=== PATIENT | female | born 1935 | race Caucasian/White ===

== ENCOUNTER → 2016-09-18 | Outpatient (CLI) | payer MEDICARE ==
--- NOTE | 2016-09-22 08:38 | MM ---
Reason for exam: screening (asymptomatic). Last mammogram was performed 1 year ago. History: Patient is postmenopausal, has history of colon cancer at age 65, and is nulliparous. Physical Findings: A clinical breast exam by your physician is recommended on an annual basis and results should be correlated with mammographic findings. MG 3D Screening Mammo W/Cad Bilateral CC and MLO view(s) were taken. Prior study comparison: September 12, 2015, bilateral MG 3d screening mammo w/cad. The breast tissue is extremely dense which could obscure a lesion on mammography. No significant changes when compared with prior studies. ASSESSMENT: Benign, BI-RAD 2 RECOMMENDATION: Routine screening mammogram of both breasts in 1 year.
== END | disposition home or self-care (01) ==
LOC: RADMAMWWP 12:10
PROVIDERS: ATTEND Family Medicine
DX: Z12.31 Encounter for screening mammogram for malignant neoplasm of breast (principal)
CPT/HCPCS: 77063; G0202

== ENCOUNTER → 2017-10-08 | Outpatient (CLI) | payer MEDICARE ==
--- NOTE | 2017-10-11 08:39 | MM ---
Reason for exam: screening (asymptomatic). Last mammogram was performed 1 year and 1 month ago. History: Patient is postmenopausal, has history of colon cancer at age 65, and is nulliparous. Physical Findings: A clinical breast exam by your physician is recommended on an annual basis and results should be correlated with mammographic findings. MG 3D Screening Mammo W/Cad Bilateral CC and MLO view(s) were taken. Prior study comparison: September 18, 2016, bilateral MG 3d screening mammo w/cad. September 12, 2015, bilateral MG 3d screening mammo w/cad. The breast tissue is extremely dense which could obscure a lesion on mammography. There are typically benign round linear vascular calcifications in both breasts, greater in the right breast. There is no discrete abnormality. ASSESSMENT: Benign, BI-RAD 2 RECOMMENDATION: Routine screening mammogram of both breasts in 1 year.
== END | disposition home or self-care (01) ==
LOC: RADMAMWWP 07:42
PROVIDERS: ATTEND Family Medicine
DX: Z12.31 Encounter for screening mammogram for malignant neoplasm of breast (principal)
CPT/HCPCS: 77063; 77067

== ENCOUNTER → 2018-07-01 | Outpatient (CLI) | payer MEDICARE ==
--- NOTE | 2018-07-01 16:54 | CT ---
EXAMINATION TYPE: CT abdomen pelvis w con DATE OF EXAM: 07/01/2018 COMPARISON: None INDICATION: Fecal blood in stool and pain DLP: 535.1 mGycm, Automated exposure control for dose reduction was used. CONTRAST: 80 mL of Isovue 300. Study performed with Oral Contrast TECHNIQUE: Axial images were obtained from above the diaphragm to the pubic rami in the axial plane a t 5 mm thick sections. Reconstructed images are reviewed on the computer in the coronal plane. FINDINGS: Limited CT sections are obtained the lung bases. The lung bases are clear. CT ABDOMEN: Liver: Normal Spleen: Normal Pancreas: Atrophic Adrenal glands: The adrenal glands are normal. Gallbladder: Normal Kidneys: There appears be a solid mass on the inferior posterior lateral right kidney measuring 2.3 c m in diameter with central hypodensity. Additional workup is recommended. Neoplasm is not excluded, s eries 3 image 41. No hydronephrosis is present. No cysts are present. Delayed images were obtained through the kidneys. There may be some slight washout of the inferior right renal mass compared to t he cortex. Aorta: Vascular calcification is within the aorta. Inferior vena cava: Normal. CT PELVIS: Loops of bowel within the abdomen and pelvis are normal. There are loops of bowel which are incom pletely distended or lack oral contrast limiting their evaluation. Postsurgical changes are at the re ctosigmoid junction. No suspicious bowel abnormality is evident. Appendix: Not identified Urinary bladder: Normal. Genitourinary structures: There is a 7.8 cm x 9.0 x 13.0 cm fluid structure in the left adnexal regio n. Large cyst may be present. Uterus contains multiple calcifications which could be degenerated fibr oids. Right ovary is not identified. Osseous structures: No suspicious lytic or sclerotic lesions. Spondylolysis of L5 is evident. Degener ative disc changes are within the lower lumbar spine. Scoliosis is present. IMPRESSIONS: 1. 2.3 cm mass inferior lateral right kidney. Additional workup for neoplasm is recommended. 2. Large cyst left ovary measuring 8 x 9 x 13 cm. Neoplasm should be considered. 3. No suspicious abnormality to account for fecal blood.
== END | disposition home or self-care (01) ==
LOC: RADCTMAIN 08:20
PROVIDERS: ATTEND Family Medicine
DX: N28.89 Other specified disorders of kidney and ureter (principal); N83.202 Unspecified ovarian cyst, left side; R19.5 Other fecal abnormalities
CPT/HCPCS: 82565; 84520; 74177; 36415; Q9967

== ENCOUNTER → 2018-07-19 | Outpatient (CLI) | payer MEDICARE ==
--- NOTE | 2018-07-19 13:53 | US ---
EXAMINATION TYPE: US pelvic complete DATE OF EXAM: 07/19/2018 COMPARISON: CT 07/01/2018 CLINICAL HISTORY: 82-year-old female R19.09 INTRA ABD AND PELVIC SWELLING. TECHNIQUE: Transabdominal sonographic images of the pelvis were acquired. Transvaginal sonographic images were not obtained due to large midline-left cystic mass displacing normal anatomy. Date of LMP: Years ago FINDINGS: EXAM MEASUREMENTS: Uterus: Not visualized on this exam Endometrial Stripe: Not visualized on this exam Right Ovary: Not visualized on this exam Left Ovary: Not visualized on this exam with certainty 1. Uterus: Not visualized on this exam 2. Endometrium: Not visualized on this exam 3. Right Ovary: Not visualized on this exam 4. Left Ovary: Not visualized on this exam with certainty 5. Bilateral Adnexa: Midline- left adnexa a large cystic area is visualized measuring 13.9 x 8.3 x 1 0.3 cm 6. Posterior cul-de-sac: wnl as visualized Prop Worker notes: Uterus is unable to be visualized due to large cystic area displacing normal anato my. Cystic area left adnexa measuring 13.9 x 8.3 x 10.3 cm. No normal ovarian tissue visualized IMPRESSION: Neither the uterus or either ovary could be visualized. There is a large cystic mass filling the midl ine pelvis and left adnexa measuring up to 13.9 cm. This appears to be relatively simple in appearanc e. Cystic epithelial ovarian neoplasm (likely benign) is in the differential. Recommended surgical co nsultation and/or MRI.
== END | disposition home or self-care (01) ==
LOC: RADUSWWP 12:54
PROVIDERS: ATTEND Family Medicine
DX: N94.89 Other specified conditions associated with female genital organs and menstrual cycle (principal)
CPT/HCPCS: 76856

== ENCOUNTER → 2018-10-24 | Outpatient (CLI) | payer MEDICARE ==
--- NOTE | 2018-10-25 14:33 | MM ---
Reason for exam: screening (asymptomatic). Last mammogram was performed 1 year and 1 month ago. History: Patient is postmenopausal, has history of colon cancer at age 65, and is nulliparous. Physical Findings: A clinical breast exam by your physician is recommended on an annual basis and results should be correlated with mammographic findings. MG 3D Screening Mammo W/Cad Bilateral CC and MLO view(s) were taken. Prior study comparison: October 08, 2017, bilateral MG 3d screening mammo w/cad. September 18, 2016, bilateral MG 3d screening mammo w/cad. The breast tissue is heterogeneously dense. This may lower the sensitivity of mammography. There is an increasing group of calcifications measuring 2mm in the left central outer breast at posterior depth. Other typically benign bilateral calcifications. ASSESSMENT: Incomplete: need additional imaging evaluation, BI-RAD 0 RECOMMENDATION: Special view mammogram of the left breast. [facility] will attempt to contact patient to return for supplemental views.
== END | disposition home or self-care (01) ==
LOC: RADMAMWWP 13:10
PROVIDERS: ATTEND Family Medicine
DX: Z12.31 Encounter for screening mammogram for malignant neoplasm of breast (principal)
CPT/HCPCS: 77063; 77067

== ENCOUNTER → 2018-11-02 | Outpatient (CLI) | payer MEDICARE ==
--- NOTE | 2018-11-02 09:46 | MM ---
Reason for exam: additional evaluation requested from abnormal screening. Last mammogram was performed less than 1 month ago. History: Patient is postmenopausal, has history of colon cancer at age 65, and is nulliparous. Physical Findings: Nurse did not find any significant physical abnormalities on exam. MG 3D Work Up W/Cad LT CC with magnification, ML with magnification, and ML view(s) were taken of the left breast. Prior study comparison: October 24, 2018, bilateral MG 3d screening mammo w/cad. October 08, 2017, bilateral MG 3d screening mammo w/cad. The breast tissue is heterogeneously dense. This may lower the sensitivity of mammography. Probably benign calcifications in the left breast. These results were verbally communicated with the patient and result sheet given to the patient on 11/02/18. ASSESSMENT: Probably benign, BI-RAD 3 RECOMMENDATION: Follow-up diagnostic mammogram of the left breast in 6 months.
== END ==
LOC: RADMAMWWP 08:53
PROVIDERS: ATTEND Family Medicine
DX: R92.8 Other abnormal and inconclusive findings on diagnostic imaging of breast (principal)
CPT/HCPCS: 77065; G0279; 77061

== ENCOUNTER → 2019-01-11 | Outpatient (CLI) | payer MEDICARE ==
--- NOTE | 2019-01-11 18:08 | CT ---
EXAMINATION TYPE: CT abdomen wo/w con DATE OF EXAM: 01/11/2019 COMPARISON: 07/01/2018 INDICATION: Rt renal mass DLP: 466.6 mGycm, Automated exposure control for dose reduction was used. CONTRAST: 100 mL of Isovue 300. Study performed with Oral Contrast TECHNIQUE: Axial images were obtained from above the diaphragm to the pubic rami in the axial plane a t 5 mm thick sections. Reconstructed images are reviewed on the computer in the coronal plane. Pre and postcontrast imaging was performed. FINDINGS: Limited CT sections are obtained the lung bases. The lung bases are clear. CT ABDOMEN: Liver: Normal Spleen: Normal Pancreas: Normal Adrenal glands: The adrenal glands are normal. Gallbladder: Normal Kidneys: There is a 2.1 cm heterogeneously enhancing mass extending from the inferior lateral right k idney. This previously measured 2.2 cm. No interval growth is evident. Remaining portions of the kidneys appear unremarkable. No additional masses are evident. No enlarging masses are identified. No cysts or hydronephrosis are present. Aorta: Vascular calcification is within the aorta. Inferior vena cava: Normal. IMPRESSIONS: 1. Stable appearing mass inferior lateral right kidney
== END | disposition home or self-care (01) ==
LOC: RADCTMAIN 10:46
PROVIDERS: ATTEND Urology
DX: N28.89 Other specified disorders of kidney and ureter (principal); Z88.0 Allergy status to penicillin; Z88.1 Allergy status to other antibiotic agents; Z88.2 Allergy status to sulfonamides; Z88.8 Allergy status to other drugs, medicaments and biological substances; Z88.5 Allergy status to narcotic agent
CPT/HCPCS: 82565; 84520; 74170; 36415; Q9967

== ENCOUNTER → 2019-02-10 | Outpatient (CLI) | payer MEDICARE ==
--- NOTE | 2019-02-10 15:32 | BD ---
EXAMINATION TYPE: Axial Bone Density DATE OF EXAM: 02/10/2019 COMPARISON: 01/28/2016 CLINICAL HISTORY: Z 78.0 Height: 60.5 IN Weight: 119 LBS RISK FACTORS HISTORY OF: Active: YES Diet low in dairy products/other sources of calcium: YES Postmenopausal woman: AGE 51 MEDICATIONS: Thyroid Medications: YES Which medication: Synthroid How Lon + YEARS Additional Medications: VIT D, HIGH BLOOD PRESSURE MEDS, CHOLESTEROL, SYNTHROID, DIABETES MEDS, EXAM MEASUREMENTS: Bone mineral densitometry was performed using the Intelligent Fingerprinting System. Bone mineral density as measured about the Lumbar spine is: ----- L1-L4(G/cm2): 1.231 T Score Values are as follows: ----- L2: -0.4 ----- L3: 1.3 ----- L4: 1.7 ----- L1-L4: 0.4 Bone mineral density has: Increased 1.2% since study of: 01/28/2016 Bone mineral density about the R hip (g/cm2): 1.004 Bone mineral density about the L hip (g/cm2): 0.950 T Score values are as follows: -----R Neck: -0.2 -----L Neck: -0.6 -----R Total: 0.7 -----L Total: 0.0 Bone mineral density has: Decreased -5.6% since study of: 01/28/2016 IMPRESSION: Normal (Values between +1 and -1 indicate normal bone mass). Consider repeating this study in 5 year s or sooner if there is some new clinical indication. NOTE: T-SCORE=SD OF THE YOUNG ADULT MEAN.
== END | disposition home or self-care (01) ==
LOC: RADBDWWP 14:24
PROVIDERS: ATTEND Family Medicine
DX: Z78.0 Asymptomatic menopausal state (principal)
CPT/HCPCS: 77080

== ENCOUNTER → 2019-04-19 | Outpatient (CLI) | payer MEDICARE ==
--- NOTE | 2019-04-19 11:05 | CT ---
EXAMINATION TYPE: CT abdomen pelvis w con DATE OF EXAM: 04/19/2019 COMPARISON: Prior CT 01/11/2019 and 07/01/2018 HISTORY: Left ovarian cyst CT DLP: 415.90 mGycm Automated exposure control for dose reduction was used. TECHNIQUE: Helical acquisition of images from the lung bases through the pelvis have been completed. CONTRAST: Performed with Oral Contrast and with IV Contrast, patient injected with 100 ml mL of Isovue 300. FINDINGS: There are coronary artery calcifications present, heart size is borderline enlarged. There may be a small hiatal hernia. LUNG BASES: There are some interstitial changes at the lung bases, no pleural or pericardial effusion AORTA: Atheromatous changes are present, no aneurysm LIVER/GB: Patient is post cholecystectomy. No evident liver mass. PANCREAS: No significant abnormality is seen. SPLEEN: No significant abnormality is seen. ADRENALS: No significant abnormality is seen. KIDNEYS: Enhancing soft tissue mass at the level of the right kidney lower pole measures approximatel y 2.3 cm similar to prior exam. REPRODUCTIVE ORGANS: Large cystic mass within the pelvis is again noted and measures greater than 14 cm in AP dimension by 11 cm in transverse dimension by 10 cm in cephalad to caudal dimension and ther e is displacement of the uterus and urinary bladder, as a calcifications again noted within the uteru s BOWEL: No evident bowel obstruction. FREE AIR: No Free Air visible. ASCITES: None visible. PELVIC ADENOPATHY: None visualized. RETROPERITONEAL ADENOPATHY: No Retroperitoneal Adenopathy visible. URINARY BLADDER: No significant abnormality is seen. OSSEOUS STRUCTURES: No significant interval change is seen. Degenerative disc changes and facet arth ropathy noted at the lumbar spine, there is spondylolysis at L5 bilaterally with anterolisthesis L5-S 1 IMPRESSION: ENLARGING CYSTIC PELVIC MASS. SOFT TISSUE MASS RIGHT KIDNEY MAY REPRESENT RENAL CELL CARCINOMA. POSTO P CHANGES AND ADDITIONAL FINDINGS ABOVE.
== END | disposition home or self-care (01) ==
LOC: RADCTMAIN 07:33
PROVIDERS: ATTEND Obstetrics & Gynecology
DX: N28.89 Other specified disorders of kidney and ureter (principal); R19.09 Other intra-abdominal and pelvic swelling, mass and lump; D06.9 Carcinoma in situ of cervix, unspecified; Z98.890 Other specified postprocedural states
CPT/HCPCS: 82565; 84520; 74177; 36415; Q9967

== ENCOUNTER → 2019-05-16 | Outpatient (CLI) | payer MEDICARE ==
--- NOTE | 2019-05-16 11:18 | ECHOS ---
STRESS ECHOCARDIOGRAM DATE OF SERVICE: 05/16/2019 INDICATIONS: Chest pain. MEDICATIONS: BASELINE HEART RATE: 75 BASELINE BLOOD PRESSURE: 165/88 MAXIMUM HEART RATE: 142 MAXIMUM BLOOD PRESSURE: 207/105 85% MPHR: 115 100% MPHR: 135 METS: 3.8 MAXIMUM STAGE REACHED: I TOTAL EXERCISE TIME: 3 minutes 2 seconds CLINICAL INFORMATION: STRESS DATA: Pretesting physical examination showed a heart rate of 75 pressure is 165/88 mmHg. Baseline EKG showed sinus rhythm. The patient exercised on the treadmill according to Wicho protocol for a total of 3 minutes and 2 seconds and achieved 3.8 METs. Max heart rate was 142, which is about 104 of maximum predicted heart rate. Maximum blood pressure was 207/105 mmHg. Clinically the patient developed shortness of breath without any symptoms of chest pain or chest discomfort. The EKG showed about [address]-segment changes. ECHOCARDIOGRAM IMAGES: On echo images from parasternal long axis view, parasternal short axis view, apical 4 chamber and apical 2 chamber view were obtained as the baseline images, at peak heart rate as well as on recovery. The echocardiogram images did show good augmentation in the left ventricular systolic function. CONCLUSION: 1. Poor exercise tolerance. 2. Mild EKG changes in response to exercise. 3. Normal echocardiogram in response to exercise. MMODL / IJN: [id number] /
== END | disposition home or self-care (01) ==
LOC: RADNMMAIN 08:49
PROVIDERS: ATTEND Family Medicine
DX: R94.31 Abnormal electrocardiogram [ECG] [EKG] (principal)
CPT/HCPCS: 93351

== ENCOUNTER → 2019-05-22 | Outpatient (CLI) | payer MEDICARE ==
--- NOTE | 2019-05-22 14:51 | MM ---
Reason for exam: follow-up at short interval from prior study. Last mammogram was performed 7 months ago. History: Patient is postmenopausal, has history of colon cancer at age 65, and is nulliparous. Physical Findings: Nurse did not find any significant physical abnormalities on exam. MG 3D Diag Mammo W/Cad LT CC and MLO view(s) were taken of the left breast. Prior study comparison: November 02, 2018, left breast MG 3d work up w/cad LT. October 24, 2018, bilateral MG 3d screening mammo w/cad. The breast tissue is heterogeneously dense. This may lower the sensitivity of mammography. Benign appearing calcifications in the left breast. Left upper outer quadrant architectural distortion 8cm from nipple. These results were verbally communicated with the patient and result sheet given to the patient on 05/22/19. ASSESSMENT: Incomplete: need additional imaging evaluation, BI-RAD 0 RECOMMENDATION: Ultrasound of the left breast.
--- NOTE | 2019-05-22 14:53 | USB ---
Reason for exam: additional evaluation requested from abnormal screening. History: Patient is postmenopausal, has history of colon cancer at age 65, and is nulliparous. US Breast Limited LT Left limited breast ultrasound including focal area of concern, retroareolar and axilla demonstrates a 7 x 4 x 9mm probable cystic cluster at 1 o'clock, 6 month follow up recommended. These results were verbally communicated with the patient and result sheet given to the patient on 05/22/19. ASSESSMENT: Probably benign, BI-RAD 3 RECOMMENDATION: Follow-up diagnostic mammogram of both breasts in 6 months. Ultrasound of the left breast in 6 months.
== END | disposition home or self-care (01) ==
LOC: RADMAMWWP 13:05
PROVIDERS: ATTEND Family Medicine
DX: R92.8 Other abnormal and inconclusive findings on diagnostic imaging of breast (principal)
CPT/HCPCS: 77061; 77065

== ENCOUNTER → 2019-06-08 | Outpatient (CLI) | payer MEDICARE ==
--- NOTE | 2019-06-09 01:34 | MR ---
EXAMINATION TYPE: MR pelvis w con DATE OF EXAM: 06/08/2019 COMPARISON: HISTORY: mass ovary and kidney CONTRAST: Standard multiplanar, multisequence MRI departmental protocol utilizing 5.5 mL intravenous Gadavist g adolinium contrast. Multiplanar multiecho imaging of the pelvis was performed with intravenous contrast. There is a thin wall large cystic mass in the pelvis that measures 15 x 9 x 11 cm. Urinary bladder is effaced anteriorly. There is no free fluid in the pelvis. There is a first-degree L5-S1 spondylolist hesis. There is disc space narrowing at L4-5 L5-S1. There is a 5 x 2.8 cm area of mixed signal on the anterior right lateral aspect of the cystic mass consistent uterus with calcified fibroids. The juan jocelyn of exam is unremarkable. Uterus is displaced to the right side and therefore cystic mass probab ly arises from the left ovary. IMPRESSION: Large thin-walled cystic mass apparently arising from the left ovary not changed in size compared to CT scan of 04/19/2019. No free fluid. No pathologic enhancement.
--- NOTE | 2019-06-09 01:52 | MR ---
EXAMINATION TYPE: MR abd w DATE OF EXAM: 06/08/2019 COMPARISON: HISTORY: mass ovary and kidney CONTRAST: Standard multiplanar, multisequence MRI departmental protocol utilizing 5.5 mL intravenous Gadavist g adolinium contrast. Liver and spleen appear normal. Bile ducts are not dilated. There is no evidence of pleural effusion. Spleen is intact. There is no evidence of pancreatic mass. The pancreatic duct is not dilated. There is no adrenal mass. Kidneys have normal size. There is 1 cm cortical cyst lateral right kidney. On the lower pole lateral aspect of the right kidney there is 2.1 cm exophytic mass. The mass has mi xed signal and on the T1 images predominantly higher signal. The lesion does not appear to have any s ignificant enhancement with the contrast. There is no ascites. There is no evidence of retroperitoneal adenopathy. Kidneys show no hydronephros is. IMPRESSION: Nonenhancing complex mass is exophytic on the lower pole right kidney and not changed in size compare d to CT scan of 04/19/2019. Mass also not changed in size compared to 07/01/2018 CT scan. The mass has not changed in size in almost 1 year. I have low suspicion of a malignant tumor. 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
== END | disposition home or self-care (01) ==
LOC: RADMRIMAIN 14:19
PROVIDERS: ATTEND Family Medicine
DX: N83.202 Unspecified ovarian cyst, left side (principal); N28.89 Other specified disorders of kidney and ureter
CPT/HCPCS: 72196; 74182; A9585

== ENCOUNTER → 2019-07-18 | Outpatient (CLI) | payer MEDICARE ==
--- NOTE | 2019-07-18 15:01 | US ---
EXAMINATION TYPE: US kidneys/renal and bladder DATE OF EXAM: 07/18/2019 COMPARISON: NONE CLINICAL HISTORY: D41.01 Right renal Mass. EXAM MEASUREMENTS: Right Kidney: 9.9 x 4.2 x 5.3 cm Left Kidney: 9.1 x 5.2 x 4.3 cm Right Kidney: solid lower pole vascular mass measuring 2.3 x 2.0 x 2.1cm Left Kidney: wnl Bladder: somewhat displaced due to large cyst in pelvis measuring 15.2 x 7.8 x 11.8cm There is no evidence for hydronephrosis at this point in time. No nephrolithiasis is seen. The urin lisandro bladder is anechoic. Bilateral ureteral jets are seen. IMPRESSION: Solid mass lower pole right kidney is nonspecific however renal cell carcinoma is not excluded. Cysti c pelvic mass.
== END | disposition home or self-care (01) ==
LOC: RADUSWWP 14:00
PROVIDERS: ATTEND Urology
DX: D41.01 Neoplasm of uncertain behavior of right kidney (principal); R19.00 Intra-abdominal and pelvic swelling, mass and lump, unspecified site; Z88.0 Allergy status to penicillin; Z88.1 Allergy status to other antibiotic agents; Z88.2 Allergy status to sulfonamides; Z88.5 Allergy status to narcotic agent
CPT/HCPCS: 76770

== ENCOUNTER 2019-12-13 06:31 | Day surgery (SDC) | payer MEDICARE ==
[2019-12-11 13:48] VITALS: BMI 20.7
[~2019-12-13 06:31] MED LIST: LACTATED RINGERS 1,000 ML IV SCH; LIDOCAINE 1% (10MG/ML) FOR IV START INTRADERMA PRN
[2019-12-13] MEDS ORDERED: LACTATED RINGERS 1,000 ML IV ONE (07:11)
[2019-12-13] MEDS ORDERED: PROPOFOL 10 MG/ML 20 ML VIAL IV ONE (07:32)
--- NOTE | 2019-12-13 07:35 | P.GSHP ---
History of Present Illness H&P Date: 12/13/19 CHIEF COMPLAINT: Colon screen HISTORY OF PRESENT ILLNESS: The patient is a 84-year-old female who presents for colon screen. Lower endoscopy was offered for further evaluation and management. PAST MEDICAL HISTORY: Please see list. PAST SURGICAL HISTORY: Please see list. MEDICATIONS: Please see list. ALLERGIES: Please see list. SOCIAL HISTORY: No illicit drug use FAMILY HISTORY: No reports of Crohn disease or ulcerative colitis. REVIEW OF ORGAN SYSTEMS: CONSTITUTIONAL: No reports of fevers or chills. PHYSICAL EXAM: VITAL SIGNS: Stable GENERAL: Well-developed pleasant in no acute distress. HEENT: No scleral icterus. Extraocular movements grossly intact. Moist buccal mucosa. NECK: Supple without lymphadenopathy. CHEST: Unlabored respirations. Equal bilateral excursions. CARDIOVASCULAR: Regular rate and rhythm. Distal 2+ pulses. ABDOMEN: Soft, nontender, nondistended. MUSCULOSKELETAL: No clubbing, cyanosis, or edema. ASSESSMENT: 1. Colon screen. PLAN: 1. Recommend proceeding with a lower endoscopy Past Medical History Past Medical History: Cancer, Diabetes Mellitus, Hypertension, Thyroid Disorder Additional Past Medical History / Comment(s): colon cancer History of Any Multi-Drug Resistant Organisms: None Reported Past Surgical History: Appendectomy, Bowel Resection, Cholecystectomy Additional Past Surgical History / Comment(s): nodules removed from thyroid Past Anesthesia/Blood Transfusion Reactions: No Reported Reaction Smoking Status: Never smoker - Past Family History Mother Family Medical History: No Reported History Medications and Allergies Home Medications Medication Instructions Recorded Confirmed Type Ascorbic Acid [Vitamin C] 500 mg PO DAILY 08/23/18 12/11/19 History Aspirin [Adult Low Dose Aspirin EC] 81 mg PO HS 08/23/18 12/11/19 History Enalapril [Vasotec] 10 mg PO BID 08/23/18 12/11/19 History Fenofibrate Nanocrystallized 145 mg PO DAILY 08/23/18 12/11/19 History [Fenofibrate] Lactobacillus Acidophilus 1 each PO DAILY 08/23/18 12/11/19 History [Acidophilus] Levothyroxine Sodium [Synthroid] 50 mcg PO DAILY 08/23/18 12/11/19 History Lysine [l-Lysine] 500 mg PO DAILY 08/23/18 12/11/19 History Magnesium Oxide [Mag-Ox] 250 mg PO DAILY 08/23/18 12/11/19 History Ensign-3 Fatty Acids/Fish Oil 1 each PO DAILY 08/23/18 12/11/19 History [Ensign-3 Fish Oil 1,200 mg Sfgl] Pioglitazone [Actos] 15 mg PO DAILY 08/23/18 12/11/19 History Rutin 500 mg PO DAILY 08/23/18 12/11/19 History Saccharomyces Cerevisiae [Scott's 1,000 mg PO DAILY 08/23/18 12/11/19 History Yeast] Ubidecarenone [Co Q-10] 200 mg PO DAILY 08/23/18 12/11/19 History Vitamin E (Dl,Tocopheryl Acet) 400 unit PO DAILY 08/23/18 12/11/19 History [Vitamin E] Cholecalciferol [Vitamin D3 (25 10,000 unit PO DAILY 12/11/19 12/11/19 History Mcg = 1000 Iu)] Allergies Allergy/AdvReac Type Severity Reaction Status Date / Time adhesive tape Allergy nguyen skin Verified 12/11/19 13:38 clindamycin Allergy Rash/Hives Verified 12/11/19 13:38 fentanyl Allergy Unknown Verified 12/11/19 13:38 levofloxacin Allergy Rash/Hives Verified 12/11/19 13:38 Penicillins Allergy yeast Verified 12/11/19 13:38 infection Sulfa (Sulfonamide Allergy Unknown Verified 12/11/19 13:38 Antibiotics) Surgical - Exam Vital Signs Temp Pulse Resp BP Pulse Ox 97.5 F L 78 18 175/88 94 L 12/13/19 07:08 12/13/19 07:08 12/13/19 07:08 12/13/19 07:08 12/13/19 07:08
--- NOTE | 2019-12-13 08:03 | P.PCN ---
Date of Procedure: 12/13/19 Description of Procedure: PREOPERATIVE DIAGNOSIS: Personal history of colon cancer POSTOPERATIVE DIAGNOSIS: Personal history of colon polyps Tubular adenoma cecum Tubular adenoma ascending colon Internal hemorrhoids, grade 3 OPERATION: Colonoscopy to the ileocecal valve and appendiceal orifice, cecum Colonoscopy with multiple hot snare polypectomies Colonoscopy with cold forceps biopsies SURGEON: Sarika Almanzar MD. ANESTHESIA: MAC. INDICATIONS: The patient is an 84-year-old male who presents with personal history of colon cancer. Last colonoscopy 1 year ago multiple large polyps removed. Benefits and risks were described and informed consent was obtained. DESCRIPTION OF PROCEDURE: The patient had undergone Suprep. She had been brought into the operating room and laid in the left lateral decubitus position. After adequate intravenous sedation, the rectum was examined with 2% lidocaine jelly. External hemorrhoids were encountered. The rectal tone was within normal limits. No lesions were palpated in the rectal vault. An Olympus colonoscope was advanced until the cecum, ileocecal valve and appendiceal orifice were clearly viewed. The prep was excellent. No sigmoid diverticulosis was encountered. Multiple colonic polyps were found and s removed with snare or cold forceps. No evidence of focal colitis was found. Retroflexion of the scope demonstrated grade 3 internal hemorrhoids without active bleeding or inflammation. The colon was desufflated. The patient had tolerated the procedure well. Withdrawal time was over 6 minutes. FINDINGS: Aronchick preparation quality scale 1 (1-5) Internal hemorrhoids, grade 3 External hemorrhoids, grade 3 No arteriovenous malformations. No sigmoid diverticulosis Removal of 3 polyps: - Snare polypectomy ascending colon, 6 mm tubulovillous adenoma polyp. - Cold forceps biopsy at cecum, 3 mm and 4 mm polyp. No focal colitis. RECOMMENDATIONS: Repeat colonoscopy in 2 years, 2021 Plan - Discharge Summary Discharge Rx Participant: No New Discharge Prescriptions: Continue Saccharomyces Cerevisiae [Scott's Yeast] 1,000 mg PO DAILY Lysine [l-Lysine] 500 mg PO DAILY Redgranite-3 Fatty Acids/Fish Oil [Redgranite-3 Fish Oil 1,200 mg Sfgl] 1 each PO DAILY Magnesium Oxide [Mag-Ox] 250 mg PO DAILY Lactobacillus Acidophilus [Acidophilus] 1 each PO DAILY Vitamin E (Dl,Tocopheryl Acet) [Vitamin E] 400 unit PO DAILY Rutin 500 mg PO DAILY Ascorbic Acid [Vitamin C] 500 mg PO DAILY Levothyroxine Sodium [Synthroid] 50 mcg PO DAILY Aspirin [Adult Low Dose Aspirin EC] 81 mg PO HS Pioglitazone [Actos] 15 mg PO DAILY Fenofibrate Nanocrystallized [Fenofibrate] 145 mg PO DAILY Enalapril [Vasotec] 10 mg PO BID Ubidecarenone [Co Q-10] 200 mg PO DAILY Cholecalciferol [Vitamin D3 (25 Mcg = 1000 Iu)] 10,000 unit PO DAILY Discharge Medication List Ascorbic Acid [Vitamin C] 500 mg PO DAILY 08/23/18 [History] Aspirin [Adult Low Dose Aspirin EC] 81 mg PO HS 08/23/18 [History] Enalapril [Vasotec] 10 mg PO BID 08/23/18 [History] Fenofibrate Nanocrystallized [Fenofibrate] 145 mg PO DAILY 08/23/18 [History] Lactobacillus Acidophilus [Acidophilus] 1 each PO DAILY 08/23/18 [History] Levothyroxine Sodium [Synthroid] 50 mcg PO DAILY 08/23/18 [History] Lysine [l-Lysine] 500 mg PO DAILY 08/23/18 [History] Magnesium Oxide [Mag-Ox] 250 mg PO DAILY 08/23/18 [History] Redgranite-3 Fatty Acids/Fish Oil [Redgranite-3 Fish Oil 1,200 mg Sfgl] 1 each PO DAILY 08/23/18 [History] Pioglitazone [Actos] 15 mg PO DAILY 08/23/18 [History] Rutin 500 mg PO DAILY 08/23/18 [History] Saccharomyces Cerevisiae [Scott's Yeast] 1,000 mg PO DAILY 08/23/18 [History] Ubidecarenone [Co Q-10] 200 mg PO DAILY 08/23/18 [History] Vitamin E (Dl,Tocopheryl Acet) [Vitamin E] 400 unit PO DAILY 08/23/18 [History] Cholecalciferol [Vitamin D3 (25 Mcg = 1000 Iu)] 10,000 unit PO DAILY 12/11/19 [History] Follow up Appointment(s)/Referral(s): Sarika Almanzar MD [STAFF PHYSICIAN] - As Needed Patient Instructions/Handouts: Colorectal Polyps (DC) Activity/Diet/Wound Care/Special Instructions: Colonoscopy 2 years, 2021 Discharge Disposition: HOME SELF-CARE
[2019-12-14 15:35] LABS: Glucose,Whole Blood 108 mg/dL (75-99)
[2019-12-15 08:06] VITALS: BP 163/74; PULSE 80; RESP 16; TEMP 97.5
== END 2019-12-13 08:46 | disposition home or self-care (01) ==
LOC: ORWHC2ENDO 06:31
PROVIDERS: ATTEND Surgery Plastic and Reconstructive Surgery
DX: Z12.11 Encounter for screening for malignant neoplasm of colon (principal); D12.0 Benign neoplasm of cecum; K63.5 Polyp of colon; K64.2 Third degree hemorrhoids; K64.4 Residual hemorrhoidal skin tags; Z85.038 Personal history of other malignant neoplasm of large intestine; Z86.010 Personal history of colon polyps; E11.9 Type 2 diabetes mellitus without complications; I10 Essential (primary) hypertension; E07.9 Disorder of thyroid, unspecified; Z91.040 Latex allergy status; Z88.1 Allergy status to other antibiotic agents; Z88.5 Allergy status to narcotic agent; Z88.0 Allergy status to penicillin; Z88.2 Allergy status to sulfonamides; Z90.49 Acquired absence of other specified parts of digestive tract; Z98.890 Other specified postprocedural states; Z79.82 Long term (current) use of aspirin; Z79.899 Other long term (current) drug therapy; Z79.890 Hormone replacement therapy; Z79.84 Long term (current) use of oral hypoglycemic drugs; Z91.09 Other allergy status, other than to drugs and biological substances; Z91.89 Other specified personal risk factors, not elsewhere classified
CPT/HCPCS: 88305; 45380; 45385; J2704

== ENCOUNTER → 2019-12-20 | Outpatient (CLI) | payer MEDICARE ==
--- NOTE | 2019-12-20 13:50 | MM ---
Reason for exam: follow-up at short interval from prior study. Last mammogram was performed 7 months ago. History: Patient is postmenopausal, has history of colon cancer at age 65, and is nulliparous. Physical Findings: Nurse did not find any significant physical abnormalities on exam. MG 3D Diag Mammo W/Cad YARED Bilateral CC and MLO view(s) were taken. Prior study comparison: May 22, 2019, left breast MG 3d diag mammo w/cad LT. November 02, 2018, left breast MG 3d work up w/cad LT. The breast tissue is extremely dense which could obscure a lesion on mammography. Stable benign calcifications. There is chronic nodularity bilaterally. There is no dominant lesion. No significant new findings when compared with previous films. These results were verbally communicated with the patient and result sheet given to the patient on 12/20/19. ASSESSMENT: Benign, BI-RAD 2 RECOMMENDATION: Routine screening mammogram of both breasts in 1 year.
== END | disposition home or self-care (01) ==
LOC: RADMAMWWP 12:38
PROVIDERS: ATTEND Family Medicine
DX: R92.8 Other abnormal and inconclusive findings on diagnostic imaging of breast (principal)
CPT/HCPCS: 77066; G0279; 77062

== ENCOUNTER → 2020-07-12 | Outpatient (CLI) | payer MEDICARE ==
--- NOTE | 2020-07-12 10:20 | US ---
EXAMINATION TYPE: US kidneys/renal and bladder DATE OF EXAM: 07/12/2020 COMPARISON: CT dated the 04/19/19. CLINICAL HISTORY: N28.3 RENAL CYST. EXAM MEASUREMENTS: Right Kidney: 9.5 x 5.0 x 4.2 cm Left Kidney: 9.2 x 3.5 x 4.6 cm Right Kidney: anechoic tubular area in sinus, solid appearing mass inferior measuring 2.4 x 2.0 x 1. 9cm Left Kidney: no hydro or mass identified. Bladder: wnl Patient states pelvic cyst drained 1 year prior, again seen on today's study measuring 11.7 x 7.7 x 8 .6cm with some solid appearing area superior. There is no evidence for hydronephrosis at this point in time. No nephrolithiasis is seen. The urin lisandro bladder is anechoic. Bilateral ureteral jets are seen. IMPRESSION: Solid mass lower pole right kidney identified on prior CT dated the 04/19/19. Neoplasm is not exclude d. Consider repeat CT scan.
== END | disposition home or self-care (01) ==
LOC: RADUSWWP 09:20
PROVIDERS: ATTEND Urology
DX: D49.519 Neoplasm of unspecified behavior of unspecified kidney (principal); Z88.0 Allergy status to penicillin; Z88.1 Allergy status to other antibiotic agents; Z88.2 Allergy status to sulfonamides; Z88.5 Allergy status to narcotic agent
CPT/HCPCS: 76770

== ENCOUNTER → 2020-08-21 | Outpatient (CLI) | payer MEDICARE ==
--- NOTE | 2020-08-21 16:33 | CT ---
EXAMINATION TYPE: CT abdomen pelvis w con DATE OF EXAM: 08/21/2020 HISTORY: Recent small bowel obstructions. Bloating, gas and abdominal discomfort. CT DLP: 374.3mGycm Automated Exposure Control for Dose Reduction was Utilized. CONTRAST: CT scan of the abdomen and pelvis is performed with IV Contrast, patient injected with 100 mL of Isov ue M300. COMPARISON: CT abdomen and pelvis April 19, 2019. MRI abdomen June 08, 2019 FINDINGS: LUNG BASES: Mild cardiomegaly redemonstrated. Persistent coronary artery calcification and/or stent i n the RCA distribution. Dependent atelectasis. LIVER/GB: Cholecystectomy clips redemonstrated. PANCREAS: Moderate generalized atrophy again seen. SPLEEN: No significant abnormality is seen. ADRENALS: No significant abnormality is seen. KIDNEYS: Symmetric cortical medullary uptake and excretion without hydronephrosis seen bilaterally. S cattered subcentimeter hypodense lesions throughout right kidney stable or slightly larger still pres umed benign. Persistent exophytic heterogeneous enhancing ball-shaped solid lesion with some washout measuring 2.2 x 1.8 cm coronal image 62 correlating with lesion of concern on MRI. There is a new min imally exophytic 9 mm heterogeneous enhancing solid lesion with washout upper pole right kidney later ally coronal image 62. BOWEL: Suboptimal evaluation of oral contrast does not reach ileal loop level in the right abdomen. P rominent small and large bowel loops with air-fluid levels noted. Patient has little intra-abdominal fat making evaluation suboptimal. Small bowel feces sign in distal ileal loops consistent with delaye d passage of ingested material to colonic level. Surgical changes at level of inferior rectum redemon strated. UTERUS/ADNEXA: Small uterus consistent with patient's postmenopausal age projects to right of midline with scattered calcified fibroids redemonstrated. Persistent large thin-walled cyst or cystic mass l eft pelvis measuring nearly 12 x 10 cm image 67 unchanged from prior. Local mass effect is present. LYMPH NODES: No greater than 1cm abdominal or pelvic lymph nodes are appreciated. OSSEOUS STRUCTURES: Scoliosis in the mid to lower lumbar spine. Grade 1 anterolisthesis L5 on S1. Severe disc space narro wing L3-L4 through the L5-S1 levels with multilevel moderate to advanced facet arthropathy. OTHER: No significant additional abnormality is seen. IMPRESSION: 1. Persistent suspicious enhancing exophytic solid 2.2 cm mass laterally lower pole right kidney worr isome for renal cell carcinoma. Second partially exophytic near 1.0 cm lesion right kidney now presen t. This also concerning for second area of focal renal cell carcinoma. 2. Stable large thin-walled cyst or cystic mass in the left pelvis favoring ovarian neoplasm even if benign in etiology due to local mass effect may warrant further investigation with drainage and/or mccloud rgery. No significant change from prior. 3. Overall nonspecific bowel gas pattern. Cannot exclude persistent partial distal small bowel obstru ction. Cannot exclude underlying ileus.
== END ==
LOC: RADCTMAIN 13:48
PROVIDERS: ATTEND Surgery
DX: K56.609 Unspecified intestinal obstruction, unspecified as to partial versus complete obstruction (principal)
CPT/HCPCS: 82565; 84520; 74177; 36415; Q9967 ×2

== ENCOUNTER → 2020-12-27 | Outpatient (CLI) | payer MEDICARE ==
--- NOTE | 2021-01-02 10:54 | MM ---
Reason for exam: screening (asymptomatic). Last mammogram was performed 1 year ago. History: Patient is postmenopausal, has history of colon cancer at age 65, and is nulliparous. Physical Findings: A clinical breast exam by your physician is recommended on an annual basis and results should be correlated with mammographic findings. MG 3D Screening Mammo W/Cad Bilateral CC and MLO view(s) were taken. Prior study comparison: December 20, 2019, bilateral MG 3d diag mammo w/cad YARED. May 22, 2019, left breast MG 3d diag mammo w/cad LT. The breast tissue is extremely dense which could obscure a lesion on mammography. Stable calcifications bilaterally. No significant changes when compared with prior studies. ASSESSMENT: Benign, BI-RAD 2 RECOMMENDATION: Routine screening mammogram of both breasts in 1 year.
== END | disposition home or self-care (01) ==
LOC: RADMAMWWP 09:18
PROVIDERS: ATTEND Family Medicine
DX: Z12.31 Encounter for screening mammogram for malignant neoplasm of breast (principal); Z78.0 Asymptomatic menopausal state
CPT/HCPCS: 77063; 77067

== ENCOUNTER → 2021-02-20 | Outpatient (CLI) | payer MEDICARE ==
--- NOTE | 2021-02-20 13:41 | CT ---
EXAMINATION TYPE: CT abdomen pelvis wo/w con DATE OF EXAM: 02/20/2021 HISTORY: Rt renal mass CT DLP: 589mGycm Automated Exposure Control for Dose Reduction was Utilized. CONTRAST: CT scan of the abdomen and pelvis is performed with oral and without and with IV Contrast, patient in jected with 100 mL of Isovue 300. COMPARISON: Most recent CT August 21, 2020 and older studies FINDINGS: LUNG BASES: Mild cardiomegaly redemonstrated. Persistent right coronary artery stent. Patchy Dependen t atelectasis. LIVER/GB: Cholecystectomy clips redemonstrated. No new biliary dilatation. PANCREAS: Moderate generalized atrophy redemonstrated. SPLEEN: No significant abnormality is seen. ADRENALS: No significant abnormality is seen. KIDNEYS: Noncontrast images show no renal calculi bilaterally. Symmetric cortical medullary uptake an d excretion without hydronephrosis seen bilaterally on postcontrast images. Punctate hypodense lesion s throughout right kidney stable or less well seen still presumed benign. Persistent exophytic hetero geneous enhancing ball-shaped solid lesion with some washout measuring 2.2 x 1.8 cm axial image 38 se sagar 7 remains present and not significantly changed from prior studies. There is stable partially ex ophytic 9 mm heterogeneous enhancing solid lesion with washout upper pole right kidney laterally hilario nal image 56 series 14 current study is stable from most recent study. No concerning left renal mass. BOWEL: Suboptimal evaluation as the oral contrast does not reach colonic level and patient has little intra-abdominal fat. Prominent contrast-filled small bowel loops throughout majority of the abdomen gradually transitioned to less prominent distal small bowel loops in the right lower quadrant and pel vis surgical changes at level of inferior rectum redemonstrated. Moderate fecal focal prominence at t his level again seen. Proximal to this left the sigmoid colon show mild to moderate wall thickening w ith mucosal enhancement. UTERUS/ADNEXA: Small uterus consistent with patient's postmenopausal age projects to right of midline with scattered calcified fibroids redemonstrated. Persistent large thin-walled cyst or cystic mass l eft pelvis measures 13.7 x 11.1 cm axial image 64 increased in size from prior. Local mass effect is present including on the bladder and adjacent bowel loops. LYMPH NODES: No greater than 1cm abdominal or pelvic lymph nodes are appreciated. OSSEOUS STRUCTURES: Scoliosis in the mid to lower lumbar spine. Severe Grade 1 anterolisthesis L5 on S1. Severe disc spac e narrowing L3-L4 through the L5-S1 levels with multilevel moderate to advanced facet arthropathy red emonstrated. OTHER: Moderate calcified plaque of the aorta extends into branch vessels. IMPRESSION: 1. Stable suspicious enhancing exophytic solid 2.2 cm mass laterally lower pole right kidney worrisom e for renal cell carcinoma. Stable Second partially exophytic near 1.0 cm lesion upper pole level rig ht kidney worrisome for additional renal cell carcinoma. No new or enlarging suspicious renal masses. 2. Large thin-walled cyst or cystic mass in the left pelvis favoring ovarian neoplasm even if benign in etiology due to local mass effect may warrant further investigation with drainage and/or surgery. It is increased in size from most recent CT scan and it shows more prominent local mass effect. Follo w-up advised. 3. Overall nonspecific bowel gas pattern. Cannot exclude persistent partial distal small bowel obstr uction. Cannot exclude underlying ileus. Suspect new distal colitis right before surgical changes in the rectum. Correlate clinically.
== END | disposition home or self-care (01) ==
LOC: RADCTMAIN 10:42
PROVIDERS: ATTEND Urology
DX: N28.89 Other specified disorders of kidney and ureter (principal)
CPT/HCPCS: 82565; 84520; 74178; 36415; Q9967 ×2

== ENCOUNTER → 2021-09-24 | Outpatient (CLI) | payer MEDICARE ==
--- NOTE | 2021-09-24 12:10 | CT ---
EXAMINATION TYPE: CT abdomen pelvis wo/w con DATE OF EXAM: 09/24/2021 COMPARISON: CT dated 02/20/2021 HISTORY: intra abdominal and pelvic swelling mass CT DLP: 922 mGycm Automated exposure control for dose reduction was used. TECHNIQUE: Helical acquisition of images was performed from the lung bases through the pelvis. CONTRAST: Performed with Oral Contrast and with IV Contrast, patient injected with 100ML mL of Isovue 300. FINDINGS: LUNG BASES: Suspected cardiomegaly. LIVER/GB: Previous cholecystectomy. Stable dilated CBD and central intrahepatic biliary tree likely r elated to postcholecystectomy status. No definite hepatic focal lesion. PANCREAS: Atrophic. Slightly larger cystic lesion seen at the distal pancreatic body measuring 16mm c ompared to 13 mm previously with slightly more dilatation of the pancreatic duct distal to the lesion . Recommend surgical consultation if not already performed. SPLEEN: No significant abnormality is seen. ADRENALS: No significant abnormality is seen. KIDNEYS: Stable suspicious renal cell carcinoma of the lower pole of right kidney measuring up to 2.2 cm. The less complex cystic lesion at the upper pole of right kidney is slightly larger today measur ing 13 mm compared to 11 mm previously. This could represent another RCC. Other scattered smaller linus ateral renal hypodensities likely representing tiny renal cysts. FREE AIR: No free air is visualized. RETROPERITONEAL ADENOPATHY: None visualized REPRODUCTIVE ORGANS: Suspected multiple uterine calcifications, appreciated previously. The previousl y seen large left pelvic cyst has markedly decreased in size with apparent partially cystic lesion in the left adnexa with slightly thick wall measuring 2.9 x 3.8 cm. This is suboptimally assessed by th is CT scan. Further pelvic ultrasound or MRI assessment can be considered. No gross right adnexal mas s. URINARY BLADDER: No significant abnormality is seen. PELVIC ADENOPATHY: None visualized. OSSEOUS STRUCTURES: Diffuse osteopenia. Bilateral L5 pars break with grade 2 anterolisthesis of L5 o michael S1. Degenerative changes of the lower lumbar spine most evident at L5-S1 level. BOWEL: Unremarkable nondistended stomach. Small duodenal diverticulum. Another diverticulum is seen at the duodenojejunal junction. Diffuse dilatation of the small bowel loops measuring up to 6.2 cm wi th a gradual tapering of the caliber down to the ileocecal junction, associated with dependent densit ies within the dilated small bowel loops, nonspecific. This was also appreciated previously and unlik magda to represent acute mechanical small bowel obstruction. The underlying etiology could be functiona l representing element of chronic ileus. Scleroderma or malabsorption syndrome cannot be excluded. Re commend clinical correlation, GI consultation and further workup. Colonic anastomosis in the pelvis, grossly unremarkable. Severe fecal loading of the rectum and most of the colon consistent with consti pation. Slight wall thickening of the splenic flexure, please correlate with colonoscopy results. OTHER: Extensive arterial atherosclerotic calcifications. No sizable ascites. IMPRESSION: 1. Stable highly suspicious right lower pole renal lesion likely representing renal cell carcinoma wi th slightly larger complex cystic lesion at the upper pole of right kidney as described above. Recomm end urology consultation if not already performed. 2. Interval regression of the size of the previously seen left pelvic cystic lesion with residual sma ller cyst demonstrating thickened wall, likely left adnexal as described above. This can be further a ssessed by dedicated ultrasound/MRI of the left ovary. 3. Persistent marked diffuse dilatation of the small bowel loops as described above, likely chronic a nd appreciated previously. This could represent a form of ileus. Underlying chronic bowel disease lik e scleroderma or malabsorption syndrome cannot be excluded. Recommend clinical correlation, GI consul tation and further workup. 4. Slightly thickened colonic splenic flexure, recommend correlation with colonoscopy results. 5. Enlarging pancreatic tail cyst, for surgery consultation. Other incidental findings as described victor m nazario.
== END | disposition home or self-care (01) ==
LOC: RADCTMAIN 07:19
PROVIDERS: ATTEND Family Medicine
DX: K86.2 Cyst of pancreas (principal); K63.89 Other specified diseases of intestine; N94.89 Other specified conditions associated with female genital organs and menstrual cycle
CPT/HCPCS: 82565; 84520; 74178; 36415; Q9967

== ENCOUNTER → 2021-12-02 | Outpatient (CLI) | payer MEDICARE ==
--- NOTE | 2021-12-03 05:27 | XR ---
EXAMINATION TYPE: XR abdomen acute w cxr DATE OF EXAM: 12/02/2021 COMPARISON: CT 09/24/2021 HISTORY: 78-year-old female R1 4.0, abdominal distention and bloating FINDINGS: Heart mildly enlarged mild atherosclerotic arch calcifications. Some strandy atelectasis in the lower lungs. No colt consolidation or pleural effusion. No evidence for free intraperitoneal air. Air-fluid levels throughout the colon. Cholecystectomy clips. Gassy bowel loops are present throughou t extending distally to the rectum. Surgical clips on both sides of the pelvis. No significant stool burden seen. Some chronic appearing calcifications in the pelvis. IMPRESSION: 1. Mild cardiomegaly. There may be underlying COPD. No definite acute cardiopulmonary process. 2. No evidence for free air. 3. Air-filled bowel loops throughout the abdomen and pelvis. Consider generalized ileus. There our mccloud rgical clips in the pelvis. Given the degree of air distention of multiple bowel loops, correlate to exclude distal colonic obstruction.
== END | disposition home or self-care (01) ==
LOC: LABWHC1 14:31
PROVIDERS: ATTEND Family Medicine
DX: I51.7 Cardiomegaly (principal)
CPT/HCPCS: 36415; 74022; 93005

== ENCOUNTER → 2021-12-26 | Outpatient (CLI) | payer MEDICARE ==
--- NOTE | 2021-12-29 10:15 | MM ---
Reason for Exam: Screening (asymptomatic). Last screening mammogram was performed 12 month(s) ago. Patient History: Menarche at age 12. Patient has no children. Postmenopausal. Prior Study Comparison: 05/22/2019 Left Diagnostic Mammogram, [facility]. 12/20/2019 Bilateral Diagnostic Mammogram, [facility]. 12/27/2020 Bilateral Screening Mammogram, [facility]. Tissue Density: The breast tissue is extremely dense which could obscure a lesion on mammography. Findings: Analyzed By CAD. Redemonstrated benign bilateral vascular and secretory calcifications. No significant mass, suspicious microcalcifications, or other discrete abnormality is seen allowing for the patient's extremely dense tissues. Overall Assessment: Benign, BI-RAD 2 Management: Screening Mammogram of both breasts in 1 year. 1. Consideration can be given to supplementary screening breast ultrasound given the patient's extremely dense tissues. 2. Patient should continue monthly self breast exams. A clinical breast exam by your physician is recommended on an annual basis. 3. This exam should not preclude additional follow-up of suspicious palpable abnormalities. Electronically signed and approved by: Paola Venegas M.D. Radiologist
== END | disposition home or self-care (01) ==
LOC: RADMAMWWP 13:55
PROVIDERS: ATTEND Family Medicine
DX: Z12.31 Encounter for screening mammogram for malignant neoplasm of breast (principal); R92.1 Mammographic calcification found on diagnostic imaging of breast; Z78.0 Asymptomatic menopausal state
CPT/HCPCS: 77063; 77067

== ENCOUNTER → 2022-03-02 | Outpatient (CLI) | payer MEDICARE ==
--- NOTE | 2022-03-02 13:05 | US ---
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 F/U right re nal lesion TECHNIQUE: Multiple sonographic images of the kidneys and bladder are obtained. FINDINGS: EXAM MEASUREMENTS: Right Kidney: 10.7 x 5.7 x 4.8 cm Left Kidney: 9.3 x 4.9 x 4.6 cm Right Kidney: No evidence hydro, stable (compared to 07/12/2020) solid renal lesion lower pole= 2.4 x 1 .5 x 2.1 cm. Unable to appreciate cystic lesion upper pole as visualized on prior CT due to very thin patient. No hydronephrosis. Left Kidney: Visualized portions appeared wnl Bladder: Appeared wnl Bilateral Jets seen: Only right jet visualized Incidental finding left adnexal cystic mass, stable when compared to prior CT= 3.3 x 2.0 x 2.4 cm IMPRESSION: 1. Solid mass lower pole right kidney measuring 2.4 cm remains unchanged back to 07/12/2020. Ongoing mccloud rveillance recommended as an indolent RCC is not excluded. 2. No hydronephrosis on either side. 3. Incidental left adnexal cystic lesion measuring 3.3 cm, abnormal in a postmenopausal female. This was measured up to 15 cm back on the MRI of 06/08/2019. Despite it being smaller, ongoing surveillance recommended.
== END | disposition home or self-care (01) ==
LOC: RADUSWWP 07:53
PROVIDERS: ATTEND Urology
DX: D41.01 Neoplasm of uncertain behavior of right kidney (principal)
CPT/HCPCS: 76770

== ENCOUNTER → 2022-05-07 | Day surgery (SDC) | payer MEDICARE ==
[2022-05-06 09:58] VITALS: BMI 16.9
[~2022-05-07] MED LIST changes: +LACTATED RINGERS 1,000 ML IV ONE; +PROPOFOL 10 MG/ML 20 ML VIAL IV ONE
[2022-05-07 07:56] VITALS: TEMP 98
--- NOTE | 2022-05-07 08:00 | P.GSHP ---
History of Present Illness H&P Date: 05/07/22 CHIEF COMPLAINT: Colon screen HISTORY OF PRESENT ILLNESS: The patient is a 86-year-old female who presents for colon screen. Lower endoscopy was offered for further evaluation and management. PAST MEDICAL HISTORY: Please see list. PAST SURGICAL HISTORY: Please see list. MEDICATIONS: Please see list. ALLERGIES: Please see list. SOCIAL HISTORY: No illicit drug use FAMILY HISTORY: No reports of Crohn disease or ulcerative colitis. REVIEW OF ORGAN SYSTEMS: CONSTITUTIONAL: No reports of fevers or chills. PHYSICAL EXAM: VITAL SIGNS: Stable GENERAL: Well-developed pleasant in no acute distress. HEENT: No scleral icterus. Extraocular movements grossly intact. Moist buccal mucosa. NECK: Supple without lymphadenopathy. CHEST: Unlabored respirations. Equal bilateral excursions. CARDIOVASCULAR: Regular rate and rhythm. Distal 2+ pulses. ABDOMEN: Soft, nontender, nondistended. MUSCULOSKELETAL: No clubbing, cyanosis, or edema. ASSESSMENT: 1. Colon screen. PLAN: 1. Recommend proceeding with a lower endoscopy Past Medical History Past Medical History: Cancer, Diabetes Mellitus, Hyperlipidemia, Hypertension, Thyroid Disorder Additional Past Medical History / Comment(s): colon cancer. UNEXPLAINED WEIGHT LOSS History of Any Multi-Drug Resistant Organisms: None Reported Past Surgical History: Appendectomy, Bowel Resection, Cholecystectomy Additional Past Surgical History / Comment(s): nodules removed from thyroid. COLONOSCOPY. LYSIS OF ADHESIONS Past Anesthesia/Blood Transfusion Reactions: No Reported Reaction Smoking Status: Never smoker - Past Family History Mother Family Medical History: No Reported History Medications and Allergies Home Medications Medication Instructions Recorded Confirmed Type Ascorbic Acid [Vitamin C] 500 mg PO DAILY 08/23/18 05/06/22 History Aspirin [Adult Low Dose Aspirin EC] 81 mg PO HS 08/23/18 05/06/22 History Enalapril [Vasotec] 10 mg PO BID 08/23/18 05/07/22 History Fenofibrate Nanocrystallized 145 mg PO DAILY 08/23/18 05/07/22 History [Fenofibrate] Lactobacillus Acidophilus 1 each PO DAILY 08/23/18 05/06/22 History [Acidophilus] Lysine [l-Lysine] 500 mg PO DAILY 08/23/18 05/06/22 History Magnesium Oxide [Mag-Ox] 250 mg PO DAILY 08/23/18 05/06/22 History [place]-3 Fatty Acids/Fish Oil 1 each PO DAILY 08/23/18 05/06/22 History [[place]-3 Fish Oil 1,200 mg Sfgl] Rutin 500 mg PO DAILY 08/23/18 05/06/22 History Saccharomyces Cerevisiae [Scott's 1,000 mg PO DAILY 08/23/18 05/06/22 History Yeast] Ubidecarenone [Co Q-10] 200 mg PO DAILY 08/23/18 05/06/22 History Vitamin E (Dl,Tocopheryl Acet) 400 unit PO DAILY 08/23/18 05/06/22 History [Vitamin E (400 Iu = 180 mg)] Cholecalciferol [Vitamin D3 (25 10,000 unit PO DAILY 12/11/19 05/07/22 History Mcg = 1000 Iu)] Levothyroxine Sodium 100 mcg PO DAILY 05/06/22 05/07/22 History Allergies Allergy/AdvReac Type Severity Reaction Status Date / Time adhesive tape Allergy nguyen skin Verified 05/07/22 07:52 clindamycin Allergy Rash/Hives Verified 05/07/22 07:52 fentanyl Allergy Unknown Verified 05/07/22 07:52 levofloxacin Allergy Rash/Hives Verified 05/07/22 07:52 Penicillins AdvReac yeast Verified 05/07/22 07:52 infection Sulfa (Sulfonamide AdvReac YEAST Verified 05/07/22 07:52 Antibiotics) INFECTION Surgical - Exam Vital Signs Temp Pulse Resp BP Pulse Ox 98.0 F 74 16 203/93 98 05/07/22 07:54 05/07/22 07:54 05/07/22 07:54 05/07/22 07:54 05/07/22 07:54
[2022-05-07 08:12] LABS: Glucose,Whole Blood 75 mg/dL (70-110)
--- NOTE | 2022-05-07 09:37 | P.PCN ---
Date of Procedure: 05/07/22 Description of Procedure: PREOPERATIVE DIAGNOSIS: Personal history of colon cancer Personal history of colon polyps after right hemicolectomy POSTOPERATIVE DIAGNOSIS: Tubular adenoma, anastomosis Tubular adenoma transverse colon Internal hemorrhoids, grade 3 OPERATION: Colonoscopy to the ileocecal valve and appendiceal orifice, cecum Colonoscopy with hot snare polypectomy Colonoscopy with cold forceps biopsy SURGEON: Sarika Almanzar MD. ANESTHESIA: MAC. INDICATIONS: The patient is an 86-year-old male who presents family history of malignant colon polyps and personal history of colon polyps. Last colonoscopy 5 years. Benefits and risks were described and informed consent was obtained. DESCRIPTION OF PROCEDURE: The patient had undergone MiraLAX prep. The patient had been brought into the operating room and laid in the left lateral decubitus position. After adequate intravenous sedation, the rectum was examined with 2% lidocaine jelly. The prostate was unremarkable. External hemorrhoids were encountered. The rectal tone was within normal limits. No lesions were palpated in the rectal vault. An Olympus colonoscope was advanced until the cecum, ileocecal valve and appendiceal orifice were clearly viewed. The prep was fair. No sigmoid diverticulosis was encountered. Colonic polyps were found and removed. No evidence of focal colitis was found. Retroflexion of the scope demonstrated grade 2 internal hemorrhoids without active bleeding or inflammation. The colon was desufflated. The patient had tolerated the procedure well. Withdrawal time was over 6 minutes. FINDINGS: Aronchick preparation quality scale 3 (1-5) Internal hemorrhoids, grade 3 External hemorrhoids, grade 3. No arteriovenous malformations. No sigmoid diverticulosis Removal of 3 polyps: - Snare polypectomy transverse colon x 2, 6 mm tubulovillous adenoma - Cold forceps biopsy at right hemicolectomy anastomosis, 4 mm villous adenoma No focal colitis. RECOMMENDATIONS: Repeat colonoscopy 3 years, 2024 Plan - Discharge Summary Discharge Rx Participant: No New Discharge Prescriptions: Continue Saccharomyces Cerevisiae [Scott's Yeast] 1,000 mg PO DAILY Lysine [l-Lysine] 500 mg PO DAILY [place]-3 Fatty Acids/Fish Oil [[place]-3 Fish Oil 1,200 mg Sfgl] 1 each PO DAILY Magnesium Oxide [Mag-Ox] 250 mg PO DAILY Lactobacillus Acidophilus [Acidophilus] 1 each PO DAILY Vitamin E (Dl,Tocopheryl Acet) [Vitamin E (400 Iu = 180 mg)] 400 unit PO DAILY Rutin 500 mg PO DAILY Ascorbic Acid [Vitamin C] 500 mg PO DAILY Aspirin [Adult Low Dose Aspirin EC] 81 mg PO HS Fenofibrate Nanocrystallized [Fenofibrate] 145 mg PO DAILY Enalapril [Vasotec] 10 mg PO BID Ubidecarenone [Co Q-10] 200 mg PO DAILY Cholecalciferol [Vitamin D3 (25 Mcg = 1000 Iu)] 10,000 unit PO DAILY Levothyroxine Sodium 100 mcg PO DAILY Discharge Medication List Ascorbic Acid [Vitamin C] 500 mg PO DAILY 08/23/18 [History] Aspirin [Adult Low Dose Aspirin EC] 81 mg PO HS 08/23/18 [History] Enalapril [Vasotec] 10 mg PO BID 08/23/18 [History] Fenofibrate Nanocrystallized [Fenofibrate] 145 mg PO DAILY 08/23/18 [History] Lactobacillus Acidophilus [Acidophilus] 1 each PO DAILY 08/23/18 [History] Lysine [l-Lysine] 500 mg PO DAILY 08/23/18 [History] Magnesium Oxide [Mag-Ox] 250 mg PO DAILY 08/23/18 [History] [place]-3 Fatty Acids/Fish Oil [[place]-3 Fish Oil 1,200 mg Sfgl] 1 each PO DAILY 08/23/18 [History] Rutin 500 mg PO DAILY 08/23/18 [History] Saccharomyces Cerevisiae [Scott's Yeast] 1,000 mg PO DAILY 08/23/18 [History] Ubidecarenone [Co Q-10] 200 mg PO DAILY 08/23/18 [History] Vitamin E (Dl,Tocopheryl Acet) [Vitamin E (400 Iu = 180 mg)] 400 unit PO DAILY 08/23/18 [History] Cholecalciferol [Vitamin D3 (25 Mcg = 1000 Iu)] 10,000 unit PO DAILY 12/11/19 [History] Levothyroxine Sodium 100 mcg PO DAILY 05/06/22 [History] Follow up Appointment(s)/Referral(s): Sarika Almanzar MD [STAFF PHYSICIAN] - As Needed Patient Instructions/Handouts: Colorectal Polyps (GEN) Activity/Diet/Wound Care/Special Instructions: Repeat colonoscopy 3 years, 2024 Discharge Disposition: HOME SELF-CARE
[2022-05-07 09:57] VITALS: BP 148/77; PULSE 52; RESP 16
== END | disposition home or self-care (01) ==
LOC: ORWHC2ENDO 07:38
PROVIDERS: ATTEND Surgery Plastic and Reconstructive Surgery
DX: Z12.11 Encounter for screening for malignant neoplasm of colon (principal); D12.3 Benign neoplasm of transverse colon; K91.89 Other postprocedural complications and disorders of digestive system; Z98.890 Other specified postprocedural states; K64.2 Third degree hemorrhoids; K64.4 Residual hemorrhoidal skin tags; Z86.010 Personal history of colon polyps; Z85.038 Personal history of other malignant neoplasm of large intestine; E11.9 Type 2 diabetes mellitus without complications; E78.5 Hyperlipidemia, unspecified; I10 Essential (primary) hypertension; E07.9 Disorder of thyroid, unspecified; Z90.49 Acquired absence of other specified parts of digestive tract; Z79.82 Long term (current) use of aspirin; Z79.899 Other long term (current) drug therapy; Z91.048 Other nonmedicinal substance allergy status; Z88.1 Allergy status to other antibiotic agents; Z88.5 Allergy status to narcotic agent; Z88.0 Allergy status to penicillin; Z88.2 Allergy status to sulfonamides
CPT/HCPCS: 45380; 45385; J2704; 88305

== ENCOUNTER → 2022-06-01 | Outpatient (CLI) | payer MEDICARE ==
[2022-06-01 13:13] LABS: Partial Thromboplastin Time 23.9 sec (22.0-30.0); Prothrombin Time 10.8 sec (9.0-12.0)
[2022-06-01 16:10] LABS: HCT 31.9 % (37.2-46.3); HGB 10.3 g/dL (12.0-15.0); MCHC 32.3 g/dL (32.0-37.0); MCV 99.1 fL (80.0-97.0); Mean Platelet Volume 12.3 fL (9.5-12.2); NRBC Per 100 WBC 0 /100 WBCS (0.0-0.0); Platelet Count 286 X 10*3/uL (140-440); RBC 3.22 X 10*6/uL (4.10-5.20); RDW 13.3 % (11.5-14.5); WBC 4.85 X 10*3/uL (4.50-10.00)
[2022-06-01 16:44] LABS: % Iron Saturation 11.13 (12.00-45.00); ALT 188 U/L (8-44); AST 298 U/L (13-35); African American GFR (CKD) 76.3 (60.0-200.0); Albumin 3.7 g/dL (3.8-4.9); Albumin/Globulin Ratio 2.06 (1.60-3.17); Alkaline Phosphatase 75 U/L (41-126); Blood Urea Nitrogen 46.8 mg/dL (9.0-27.0); Calcium 8.3 mg/dL (8.7-10.3); Carbon Dioxide 17.4 mmol/L (20.0-27.5); Chloride 110 mmol/L (96-109); Ferritin 64.1 ng/mL (10.0-291.0); Globulin 1.8 g/dL (1.6-3.3); Glucose 134 mg/dL (70-110); Iron 67 ug/dL (50-170); Magnesium 1.8 mg/dL (1.5-2.4); Non-African American GFR(CKD) 65.8 (60.0-200.0); Phosphorus 3.2 mg/dL (2.4-5.1); Potassium 4.6 mmol/L (3.5-5.5); Sodium 140 mmol/L (135-145); Total Iron Binding Capacity 605 ug/dL (228-460); Total Protein 5.5 g/dL (6.2-8.2)
[2022-06-01 16:55] LABS: Chol/HDL Ratio 2.68 Ratio; LDL Cholesterol,Calculated 19.6 mg/dL (0.0-131.0); VLDL Calculation 15.06 mg/dL (5.00-40.00)
[2022-06-03 10:16] LABS: Zinc, Serum 69 ug/dL (60-130)
== END | disposition home or self-care (01) ==
LOC: LABWHC1 10:09
PROVIDERS: ATTEND Surgery Plastic and Reconstructive Surgery
DX: E66.01 Morbid (severe) obesity due to excess calories (principal); E44.0 Moderate protein-calorie malnutrition; E55.9 Vitamin D deficiency, unspecified; N19 Unspecified kidney failure; K50.90 Crohn's disease, unspecified, without complications; D50.8 Other iron deficiency anemias; E89.1 Postprocedural hypoinsulinemia; E21.1 Secondary hyperparathyroidism, not elsewhere classified; K74.1 Hepatic sclerosis
CPT/HCPCS: 36415; 80053; 80061; 82525; 82607; 82728; 82746; 83540; 83550; 83735; 83970; 84100; 84134; 84255; 84425; 84590; 84630; 85027; 85610; 85730

== ENCOUNTER → 2022-06-10 | Outpatient (CLI) | payer MEDICARE ==
--- NOTE | 2022-06-10 16:47 | US ---
"EXAMINATION TYPE: US liver DATE OF EXAM: 06/10/2022 COMPARISON: NONE CLINICAL HISTORY: R94.5 ABNORMAL RESULTS OF LIVER FUNCTION STUDIES. elevated liver enzymes. Cholecyst ectomy. right renal lesion TECHNIQUE: Multiple sonographic images of the right upper quadrant are obtained. FINDINGS: EXAM MEASUREMENTS: Liver Length: 12.6 cm Gallbladder Wall: Surgically absent CBD: 0.9 cm Right Kidney: 9.6 x 5.1 x 4.1 cm MICROBIOLOGY QUALITY CONTROL TECHNICIAN NOTES:*limitations due to overlying bowel content Pancreas: Obscured by bowel gas Liver: visualized portions appear wnl Gallbladder: Surgically absent Evidence for sonographic Santos's sign: no CBD: wnl for post cholecystectomy Right Kidney: solid lesion lower pole = 2.9 x 2.3 x 2.5cm. Previous measurement 2.4 x 1.5 x 2.1 cm. IMPRESSION: 1. There is a solid-appearing lesion within the inferior pole right kidney. As has enlarged from comp arison. Neoplasm is not excluded. Additional workup with contrast MRI is recommended. A Yellow level critical message alert has been initiated for Sarika Almanzar MD~[id number] via the [facility] | Critical Results System on 06/10/2022 4:44 PM. This message alert has been sent to Sarika Almanzar MD~[id number] via the preferences provided by the clinician for the receipt of Radiology Cri tical Findings. Message ID [id number]."
== END | disposition home or self-care (01) ==
LOC: RADUSWWP 07:28
PROVIDERS: ATTEND Surgery Plastic and Reconstructive Surgery
DX: N28.9 Disorder of kidney and ureter, unspecified (principal); R94.5 Abnormal results of liver function studies
CPT/HCPCS: 76705

== ENCOUNTER → 2022-12-30 | Outpatient (CLI) | payer MEDICARE ==
--- NOTE | 2022-12-30 14:36 | MM ---
Reason for Exam: Screening (asymptomatic). Last screening mammogram was performed 12 month(s) ago. Patient History: Menarche at age 12. Patient has no children. Postmenopausal. Prior Study Comparison: 12/20/2019 Bilateral Diagnostic Mammogram, [facility]. 12/27/2020 Bilateral Screening Mammogram, [facility]. 12/26/2021 Bilateral MG 3D screening mammo w/cad, [facility]. Tissue Density: The breast tissue is extremely dense which could obscure a lesion on mammography. Findings: Analyzed By CAD. Bilateral benign-appearing calcifications. There is no suspicious group of microcalcifications or new suspicious mass in either breast. Overall Assessment: Benign, BI-RAD 2 Management: Screening Mammogram of both breasts in [address] [facility] will attempt to contact patient to return for supplemental views and ultrasound if indicated. Patient should continue monthly self-breast exams. A clinical breast exam by your physician is recommended on an annual basis. This exam should not preclude additional follow-up of suspicious palpable abnormalities. Note on Re scores and lifetime risk: 1. A Re score greater than 3% is considered moderate risk. If this is the case, consider specialist referral to assess eligibility for a risk reducing agent. 2. If overall lifetime risk for the development of breast cancer is 20% or higher, the patient may qualify for future screening with alternating mammogram and breast MRI. Electronically signed and approved by: Oneil Saleh DO
== END | disposition home or self-care (01) ==
LOC: RADMAMWWP 09:09
PROVIDERS: ATTEND Family Medicine
DX: Z12.31 Encounter for screening mammogram for malignant neoplasm of breast (principal); Z78.0 Asymptomatic menopausal state
CPT/HCPCS: 77063; 77067

== ENCOUNTER → 2023-02-05 | Outpatient (CLI) | payer MEDICARE ==
[2023-02-05 16:37] LABS: ALT 78 U/L (8-44); AST 42 U/L (13-35); Albumin 3.6 d/dL (3.8-4.9); Alkaline Phosphatase 119 U/L (41-126); BUN/Creat Ratio 42.83 Ratio (12.00-20.00); Blood Urea Nitrogen 25.7 mg/dL (9.0-27.0); Calcium 8.4 mg/dL (8.7-10.3); Carbon Dioxide 23.3 mmol/L (21.6-31.8); Chloride 109 mmol/L (96-109); Globulin 1.8 d/dL (1.6-3.3); Glucose 94 mg/dL (70-110); Potassium 5.3 mmol/L (3.5-5.5); Sodium 142 mmol/L (135-145); Total Bilirubin 0.4 mg/dL (0.3-1.2); Total Protein 5.4 d/dL (6.2-8.2)
[2023-02-05 17:19] LABS: HGB 10.7 d/dL (12.0-15.0); MCH 34.1 pg (27.0-32.0); MCHC 31.5 d/dL (32.0-37.0); MCV 108.3 FL (80.0-97.0); Mean Platelet Volume 12.1 FL (9.5-12.2); NRBC Per 100 WBC 0 X 10*3/uL (0.00-0.01); Platelet Count 202 X 10*3/uL (140-440); RBC 3.14 X 10*6/uL (4.10-5.20); WBC 4.86 X 10*3/uL (4.50-10.00)
[2023-02-05 17:32] LABS: Hepatitis A Ab, Total Nonreactive; Hepatitis B Surface Antigen Nonreactive; Hepatitis C IgG Antibody Nonreactive
[2023-02-05 17:55] LABS: Acanthocytes 2+; Anisocytosis (M) 2+; Basophils # (A) 0.01 X 10*3/uL (0.00-0.10); Basophils % (A) 0.2 %; Eosinophils # (A) 0.02 X 10*3/uL (0.04-0.35); Eosinophils % (A) 0.4 %; Lymphocytes # (A) 0.87 X 10*3/uL (0.90-5.00); Lymphocytes % (A) 17.9 %; Macrocytosis (M) 2+; Monocytes # (A) 0.56 X 10*3/uL (0.20-1.00); Monocytes % (A) 11.5 %; Neutrophils # (A) 3.38 X 10*3/uL (1.80-7.70); Neutrophils % (A) 69.6 %
== END | disposition home or self-care (01) ==
LOC: LABWHC1 10:35
PROVIDERS: ATTEND Internal Medicine Gastroenterology
DX: R74.01 Elevation of levels of liver transaminase levels (principal)
CPT/HCPCS: 36415; 80053; 85025; 86708; 86803; 87340

== ENCOUNTER → 2023-02-18 | Outpatient (CLI) | payer MEDICARE ==
--- NOTE | 2023-02-18 20:38 | US ---
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 Right Kidney: Mild pelvicaliectasis may be transient or could represent early hydronephrosis. The iso echoic lower pole mass areas again seen: 1.8x1.8x1.8cm (versus 2.4 x 1.5 by 2.1 cm, previously). A cy st at the lower pole measures 1.8x1.8x1.7cm Left Kidney: cystic area inferior and medial: 0.8x0.6x0.5cm. No hydronephrosis. Bladder: posterior wall trabeculations redemonstrated Bilateral Jets seen: Yes Horse Show Judge notes: Exam very limited by ribs and bowel. Patient extremely thin and was scanned prone to best visualize kidneys IMPRESSION: 1. Mild right-sided pelvicaliectasis may be transient or could represent early hydronephrosis. Short interval follow-up recommended. 2. Right lower pole solid bladder mass currently measuring 1.8 cm versus 2.4 cm on 03/02/2022. Despite the smaller size, ongoing surveillance follow-up is advised. 3. Posterior bladder wall trabeculations could reflect wall hypertrophy relating to chronic bladder o utlet obstruction.
--- NOTE | 2023-02-18 20:57 | US ---
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 Drained about once of year but reoccurs, noted on last exam. TECHNIQUE: Transabdominal sonographic images of the pelvis were acquired. 87 yr old patient decline d transvaginal exam Date of LMP: post aftab EXAM MEASUREMENTS: Uterus: 5.6x1.4x2.7 cm Endometrial Stripe: 0.1 cm Right Ovary: not visualized Left Ovary: not visualized 1. Uterus: Anteverted and otherwise wnl 2. Endometrium: wnl 3. Right Ovary: Obscured by overlying bowel gas 4. Left Ovary: Obscured by overlying bowel gas 6. Posterior cul-de-sac: wnl Traffic Officer notes: Cystic area not visualized. Pt states it was drained since last US. Significant o verlying bowel limited exam IMPRESSION: No specific abnormality identified by transabdominal scanning. The left adnexal cystic area in questi on is not identified. The patient indicates that it was drained since the last ultrasound. Clinically correlate.
== END | disposition home or self-care (01) ==
LOC: RADUSWWP 13:32
PROVIDERS: ATTEND Urology
DX: D41.02 Neoplasm of uncertain behavior of left kidney (principal); N28.89 Other specified disorders of kidney and ureter; N83.202 Unspecified ovarian cyst, left side
CPT/HCPCS: 76770; 76856

== ENCOUNTER → 2023-06-24 | Outpatient (CLI) | payer MEDICARE, OTHER ==
[2023-06-24 18:15] LABS: Basophils # (A) 0.01 X 10*3/uL (0.00-0.10); Basophils % (A) 0.2 %; Eosinophils # (A) 0.04 X 10*3/uL (0.04-0.35); Eosinophils % (A) 0.8 %; HCT 40.2 % (37.2-46.3); HGB 12.6 g/dL (12.0-15.0); Lymphocytes % (A) 22.9 %; MCH 33.1 pg (27.0-32.0); MCHC 31.3 g/dL (32.0-37.0); MCV 105.5 FL (80.0-97.0); Mean Platelet Volume 12.4 FL (9.5-12.2); Monocytes # (A) 0.54 X 10*3/uL (0.20-1.00); Monocytes % (A) 10.3 %; NRBC Per 100 WBC 0 X 10*3/uL (0.00-0.01); Neutrophils # (A) 3.45 X 10*3/uL (1.80-7.70); Neutrophils % (A) 65.6 %; Platelet Count 254 X 10*3/uL (140-440); RBC 3.81 X 10*6/uL (4.10-5.20); RDW 14.2 % (11.5-14.5); WBC 5.25 X 10*3/uL (4.50-10.00)
[2023-06-24 18:25] LABS: ALT 148 U/L (8-44); AST 69 U/L (13-35); Albumin 3.8 g/dL (3.8-4.9); Albumin/Globulin Ratio 1.65 Ratio (1.60-3.17); Alkaline Phosphatase 186 U/L (41-126); BUN/Creat Ratio 30.29 Ratio (12.00-20.00); Blood Urea Nitrogen 21.2 mg/dL (9.0-27.0); Calcium 8.7 mg/dL (8.7-10.3); Carbon Dioxide 23.6 mmol/L (21.6-31.8); Chloride 106 mmol/L (96-109); Globulin 2.3 g/dL (1.6-3.3); Glucose 97 mg/dL (70-110); Potassium 4.4 mmol/L (3.5-5.5); Sodium 141 mmol/L (135-145); Total Bilirubin 0.4 mg/dL (0.3-1.2); Total Protein 6.1 g/dL (6.2-8.2)
== END | disposition home or self-care (01) ==
LOC: LABWHC1 12:05
PROVIDERS: ATTEND Internal Medicine Gastroenterology
DX: R74.01 Elevation of levels of liver transaminase levels (principal)
CPT/HCPCS: 36415; 80053; 85025

== ENCOUNTER → 2023-08-06 | Outpatient (CLI) | payer MEDICARE ==
--- NOTE | 2023-08-06 18:39 | US ---
EXAMINATION TYPE: US liver DATE OF EXAM: 08/06/2023 COMPARISON: NONE CLINICAL INDICATION: Female, 87 years old with history of R74.01 ELEVATION OF LEVELS OF TRANSAMINASE LEVELS; elevated liver enzymes TECHNIQUE: Multiple sonographic images of the right upper quadrant are obtained. FINDINGS: EXAM MEASUREMENTS: Liver Length: 11.7 cm Gallbladder Wall: Surgically absent CBD: obscured by bowel Right Kidney: 9.2x5.6x6.0 cm TERRAZZO TILE SETTER NOTES: Pancreas: Tail obscured by overlying bowel gas Liver: limited evaluation due to overlying bowel gas Gallbladder: Surgically absent Evidence for sonographic Santos's sign: No CBD: Obscured by overlying bowel gas Right Kidney: scanned with posterior approach due to overlying bowel, inferior pole mass again noted measuring 2.1x1.7x1.8cm exam very limited by overlying bowel gas. Pt. has hx of bowel cancer and surgeries IMPRESSION: 1. Stable Inferior right renal mass.
== END | disposition home or self-care (01) ==
LOC: RADUSWWP 07:39
PROVIDERS: ATTEND Internal Medicine Gastroenterology
DX: R74.01 Elevation of levels of liver transaminase levels (principal); N28.89 Other specified disorders of kidney and ureter
CPT/HCPCS: 76705

== ENCOUNTER → 2023-08-24 | Outpatient (CLI) | payer MEDICARE ==
[2023-08-24 11:26] LABS: African American GFR (CKD) >90 (>60 ml/min/1.73 sqM); Blood Urea Nitrogen 25 mg/dL (7-17); Non-African American GFR(CKD) 80 (>60 ml/min/1.73 sqM)
--- NOTE | 2023-08-25 13:32 | CT ---
EXAMINATION TYPE: CT abdomen w con CT DLP: 318.1 mGycm, Automated exposure control for dose reduction was used. DATE OF EXAM: 08/24/2023 11:51 AM COMPARISON: CT abdomen pelvis most recent from 09/24/2021. CLINICAL INDICATION:Female, 87 years old with history of R74.01 elevation of liver levels; Elevated l iver enzymes. TECHNIQUE: Axial CT abdomen w con;Sagittal and coronal reformats were created on a separate workstat ion. Contrast used:100ml mL of Isovue 370 with IV Contrast, (none if empty) Oral contrast used: with Oral Contrast (none if empty) FINDINGS: LOWER CHEST: Unremarkable ABDOMEN LIVER: Unremarkable GALLBLADDER AND BILE DUCTS: Cholecystectomy clips at gallbladder fossa. PANCREAS: Unremarkable. SPLEEN: Unremarkable. ADRENAL GLANDS: Unremarkable. KIDNEYS AND URETERS: No evidence of hydronephrosis or renal calculus. The ureters are unremarkable. Bosniak 3 or possibly Bosniak 4 right kidney upper pole lesion has 2 or more thick enhancing mural nodules PELVIS BLADDER: Unremarkable REPRODUCTIVE: Unremarkable. ABDOMEN & PELVIS STOMACH AND BOWEL: Stomach is nondistended and unremarkable. Numerous dilated small bowel loops are s een throughout the abdomen and pelvis worrisome for obstruction or possibly may be more likely. . How ever the finding is similar to the prior study and chronic ileus is more likely. Bosniak 2 cystic le ashly in the lower pole of the right kidney. PERITONEUM/RETROPERITONEUM: No evidence of pneumoperitoneum or free fluid. VASCULATURE: No evidence of aortic aneurysm. MUSCULOSKELETAL: No acute osseous abnormalities LYMPH NODES: No gross evidence for lymphadenopathy. SOFT TISSUE/ABDOMINAL WALL: Unremarkable IMPRESSION: 1. Nearly uniform small bowel distention similar to the prior study suggests possible chronic form o f ileus, obstruction less likely. 2. Bosniak 4 cystic lesion in upper pole right kidney
== END | disposition home or self-care (01) ==
LOC: RADCTMAIN 10:46
PROVIDERS: ATTEND Internal Medicine Gastroenterology
DX: K63.89 Other specified diseases of intestine (principal); R74.01 Elevation of levels of liver transaminase levels; N28.1 Cyst of kidney, acquired
CPT/HCPCS: 82565; 84520; 74160; 36415; Q9967